=== PATIENT | male | born 1985 | race Caucasian/White ===

== ENCOUNTER 2016-07-25 11:55 | Emergency (ER) | payer BC ==
[2016-07-25 12:17] VITALS: RESP 16; TEMP 97.1
[2016-07-25] MEDS ORDERED: ORPHENADRINE 30 MG/ML 2 ML VIAL IM STA (12:24)
[2016-07-25] MEDS ORDERED: KETOROLAC 60 MG/2 ML VIAL IM STA (12:24)
--- NOTE | 2016-07-25 12:31 | ED ---
General Adult HPI - General Chief complaint: Back Pain/Injury Stated complaint: BACK PAIN RADIATING TO LEFT FOOT Time Seen by Provider: 07/25/16 12:18 Source: patient, RN notes reviewed Mode of arrival: wheelchair Limitations: no limitations - History of Present Illness Initial comments: This is a 30-year-old male presents with left-sided lower back pain. Patient states he was lifting a couch at home and when he went to set it down he felt pain in the lower back. Patient states he now has radicular pain down the left leg with some mild tingling. Patient denies any weakness or numbness. Patient states pain is worse with ambulation, but the patient has been ambulating since the incident. Patient denies any change in bowel or bladder function, loss of sensation to the saddle area. Patient denies any direct trauma to the back. Patient denies any recent fever, chills, shortness breath, chest pain, abdominal pain, nausea/vomiting/diarrhea, hematuria, headache, or visual changes , or any other complaints. - Related Data Previous Rx's Medication Instructions Recorded Cyclobenzaprine [Flexeril] 5 mg PO HS 3 Days 07/25/16 Dexamethasone 0.75 mg PO DIRECTED #12 tab 07/25/16 Allergies Allergy/AdvReac Type Severity Reaction Status Date / Time phenobarbital Allergy Unknown Verified 07/25/16 12:17 Childhood Review of Systems ROS Statement: Those systems with pertinent positive or pertinent negative responses have been documented in the HPI. ROS Other: All systems not noted in ROS Statement are negative. Past Medical History Additional Past Medical History / Comment(s): back pain History of Any Multi-Drug Resistant Organisms: None Reported Past Surgical History: No Surgical Hx Reported Past Psychological History: No Psychological Hx Reported Smoking Status: Never smoker Past Alcohol Use History: Occasional Past Drug Use History: None Reported General Exam - General Exam Comments Initial Comments: General: The patient is awake and alert, in no distress, and does not appear acutely ill. Neck: The neck is supple, there is no tenderness or JVD. Cardiovascular: There is a regular rate and rhythm. No murmur, rub or gallop is appreciated. Respiratory: Lungs are clear to auscultation, respirations are non-labored, breath sounds are equal. No wheezes, stridor, rales, or rhonchi. Musculoskeletal: Patient is tender to palpation over the left-sided lumbar paraspinal muscles. Patient has no tenderness directly over the lumbar spine. Patient has full range of motion, strength 5/5 and Sensation intact. Radial, posterior tibial and dorsalis pedis pulses are 2+ bilaterally. Capillary refill is normal at less than 2 seconds. Neurological: A&O x 3. CN II-XII intact, There are no obvious motor or sensory deficits. Coordination appears grossly intact. Speech is normal. Skin: Skin is warm and dry and no rashes or lesions are noted. Psychiatric: Normal mood and affect. Limitations: no limitations Course Vital Signs 07/25/16 12:14 Temperature 97.1 F L Pulse Rate 56 L Respiratory 16 Rate Blood Pressure 147/82 O2 Sat by Pulse 98 Oximetry Medical Decision Making - Medical Decision Making This is a 30-year-old male who presents with left-sided lower back pain. On physical exam patient is neurologically intact. Patient is tender to palpation over the left-sided lumbar paraspinal muscles. Patient has no tenderness directly over the lumbar spine. Patient has full range of motion, strength 5/5 and Sensation intact. Radial, posterior tibial and dorsalis pedis pulses are 2 + bilaterally. Capillary refill is normal at less than 2 seconds. X-ray of the lumbar spine was done and reviewed showing: #1 probable bilateral spondylolysis at L5 without spondylolisthesis. #2 degenerative disc disease. Reported by Dr. Blanchard. Patient is given Toradol and Norflex in the EC. Patient notes improvement in symptoms after pain medication and patient is ambulatory in the EC without difficulty. Patient states he knows about his diagnosis of spondylolysis and is planning on following up with a physical therapist for this. I discussed [id number] naproxen/Motrin or ibuprofen along with Tylenol for the pain. Discussed the patient will be put on a dexamethasone taper and that heating pads can also help the pain. Discussed the patient will also be given a prescription for Flexeril to take at night. I discussed sedation effects. I discussed return parameters. Discussed that patient should follow up with PCP in one to 2 days or return to the EC for any worsening symptoms or for any further concerns. Patient and were receptive to this plan and patient will be discharged home. Disposition Clinical Impression: Muscle spasm of back Disposition: HOME SELF-CARE Condition: Good Instructions: Acute Low Back Pain (ED) Additional Instructions: Please use [id number] naproxen/Aleve along with Tylenol. Please use prednisone and Flexeril as prescribed. Please do not drink alcohol or drive with taking Flexeril as it can make you drowsy. Warm heating pads to the back may help as well. Please use medication as discussed. Please follow-up with family doctor in the next 2 days of symptoms have not improved. Please return to emergency room if the symptoms increase or worsen or for any other concerns. Prescriptions: Cyclobenzaprine [Flexeril] 5 mg PO HS 3 Days Dexamethasone 0.75 mg PO DIRECTED #12 tab Referrals: Nonstaff,Physician [Primary Care Provider] - 1-2 days Time of Disposition: 13:09
--- NOTE | 2016-07-25 12:55 | XR ---
EXAMINATION TYPE: XR lumbar spine 2 or 3V DATE OF EXAM ORDERED: 07/25/2016 12:48 PM HISTORY: Pain. COMPARISON: None. FINDINGS: There is a lucency projecting through the pars interarticularis of L5. This is suggestive of a spondylolysis. No spondylolisthesis is seen. There is diffuse disc space narrowing, most marked at L4-5. The pedicles are intact. The facets are unremarkable. IMPRESSION: 1. PROBABLE BILATERAL SPONDYLOLYSIS AT L5 WITHOUT SPONDYLOLISTHESIS. 2. DEGENERATIVE DISC DISEASE.
[2016-07-25 13:18] VITALS: BP 132/70; PULSE 51
== END 2016-07-25 13:18 | disposition home or self-care (01) ==
LOC: EC 11:55
DX: M62.830 Muscle spasm of back (principal); X50.0XXA Overexertion from strenuous movement or load, initial encounter; Y92.009 Unspecified place in unspecified non-institutional (private) residence as the place of occurrence of the external cause; Z88.8 Allergy status to other drugs, medicaments and biological substances
CPT/HCPCS: 99283; 96372 ×2; 72100; J2360; J1885